=== PATIENT | female | born 1950 | race Caucasian/White ===

== ENCOUNTER 2021-05-29 13:29 | Inpatient (IN) | payer MEDICARE, SELFPAY ==
[2021-05-29] VITALS (7 sets, daily range): BP systolic 112–145; BP diastolic 49–62; PULSE 58–64; RESP 15–20; TEMP 36.9–37.2; O2SAT 96–99; BMI 32.4
--- NOTE | ~2021-05-29 | XR_ITS ---
EXAMINATION: XR CHEST CLINICAL INFORMATION: Weakness. Mr. dialysis. COMPARISON: None TECHNIQUE: 2 views of the chest were obtained. FINDINGS: There is bilateral increased pulmonary vascularity suggestive of volume overload or CHF. The heart size is borderline normal. The lungs are expanded without acute pneumonic consolidation. No pleural effusion seen. There is mild spondylosis. XR/XR chest 2V IMPRESSION: Mild CHF or volume overload. No acute consolidation seen.
--- NOTE | 2021-05-29 13:35 | ED.GENADULT ---
HPI - General Adult General Chief complaint: Weakness Stated complaint: weakness/confusion - missed dialysis Time Seen by Provider: 05/29/21 13:35 Source: patient and EMS Mode of arrival: EMS Limitations: no limitations History of Present Illness HPI narrative: 71-year-old female with past medical history of CKD AF, asthma, GERD, factor 5 leiden on Coumadin therapy daily, herniated discs, dialysis for the last 6 years is here today for complaining of weakness and dizziness. Patient reports that her dialysis is on Tuesday and Fridays at 10:00 a.m.. Patient reports that this morning she slept in and woke up at 10:00 a.m. and miss her dialysis. When she got up and was walking to the bathroom she felt her legs were given in under her, she denies falling, however she does report that she felt a little weak. Patient reports that she ate and drank normally yesterday does not feel like she is dehydrated. Patient denies having diabetes as a history. Unknown cause of kidney failure. Patient reports that she takes Coumadin every day and has not missed any doses. Patient reports that she does take all her medications as ordered. Patient denies CP, palpitations, syncope, presyncope, SOB with or without exertion. Patient does reports that she occasionally is short of breath history of asthma, long history of smoking and patient continues to smoke Related Data Home Medications Medication Instructions Recorded Confirmed ciprofloxacin HCl 250 mg tablet 1 tab PO DAILY 05/29/21 05/29/21 docusate sodium 100 mg capsule 100 mg PO BID 05/29/21 05/29/21 (Colace) doxepin 50 mg capsule 3 cap PO BEDTIME 05/29/21 05/29/21 ergocalciferol (vitamin D2) 1,250 1 cap PO TORRES@0900 05/29/21 05/29/21 mcg (50,000 unit) capsule fluticasone 250 mcg-salmeterol 50 1 puff PO BID 05/29/21 05/29/21 mcg/dose blistr powdr for inhalation (Antoinette Inhrm) furosemide 80 mg tablet 1 tab PO SUTUTHSA@0900 05/29/21 05/29/21 lidocaine-prilocaine 2.5 %-2.5 % 1 appl TOPICAL MOWEFR 05/29/21 05/29/21 topical cream metoprolol succinate 50 mg 1 tab PO DAILY 05/29/21 05/29/21 tablet,extended release 24 hr oxycodone 10 mg tablet 1 tab PO Q3H PRN 05/29/21 05/29/21 oxycodone myristate 36 mg capsule 1 cap PO QID 05/29/21 05/29/21 sprinkle extended release 12hr(DON'T CRUSH) (Xtampza ER) pantoprazole 40 mg tablet,delayed 1 tab PO BID 05/29/21 05/29/21 release pravastatin 40 mg tablet 1 tab PO BEDTIME 05/29/21 05/29/21 prednisone 5 mg tablet 1 tab PO MOWEFR 05/29/21 05/29/21 prochlorperazine maleate 10 mg 1 tab PO Q8H PRN 05/29/21 05/29/21 tablet sevelamer carbonate 800 mg tablet 800 mg PO TID 05/29/21 05/29/21 (Renvela) topiramate 25 mg tablet 2 tab PO BID 05/29/21 05/29/21 warfarin 1 mg tablet 1 tab PO SUMOWETHFR05/29/21 05/29/21 warfarin 2 mg tablet 1 tab PO TU 05/29/21 05/29/21 Allergies Allergy/AdvReac Type Severity Reaction Status Date / Time Penicillins Allergy Facial rash Verified 05/29/21 14:05 clopidogrel [From Plavix] AdvReac Vertigo Verified 05/29/21 14:05 Review of Systems Review of Systems: Constitutional : No Weight loss, No Fever, No Chills, No Night Sweats, No Fatigue, No Malaise ENT/Mouth : No Hearing loss, No Ear Pain, No Nasal Congestion, No Sinus Pain, No Hoarseness, No sore throat, No Rhinorrhea, No Swallowing Difficulty Eyes: No Eye Pain, No Swelling, No Redness, No Foreign Body, No Discharge, No Vision Changes Cardiovascular : No Chest Pain, No SOB, No Dyspnea on Exertion, No Orthopnea, No Edema, No Palpitations Respiratory : No Cough, No Sputum, No Wheezing, No Smoke Exposure, No Dyspnea Gastrointestinal : No Nausea, No Vomiting, No Diarrhea, No Constipation, No abdominal Pain, No Hematochezia, No Melena Genitourinary : no irregular bleeding, No Dysuria, No Urinary Frequency, No Hematuria, No Urinary Incontinence, No Urgency, No Flank Pain, No Urinary Flow Changes, No Hesitancy Musculoskeletal : No joint pain, No Myalgias, No Joint Swelling Skin : No Skin Lesions, No rash Neuro : Generalized Weakness, No Numbness, No Paresthesias, No Loss of Consciousness, No Dizziness, No Headache Psych : No Anxiety/Panic, No Depression, No SI/HI/AH/VH, No Social Issues, Heme/Lymph: No Bruising, No Bleeding,No Lymphadenopathy Endocrine : No Polyuria, No Polydipsia, No Temperature Intolerance Yes all other systems are reviewed and are negative [facility] Past Medical History Medical History (Updated 05/29/21 @ 21:48 by Elsie Coles, [facility]) Factor 5 Leiden mutation, heterozygous High cholesterol Kidney disease Social History Social History Advance Directives: No Advance Directives Information Provided: No Physical Exam Vital Signs: Vital Signs: Last Vital Signs Temp 99.0 F 05/29/21 19:15 Pulse 63 05/29/21 20:31 Resp 20 05/29/21 19:15 BP 145/62 H 05/29/21 19:15 Pulse Ox 96 05/29/21 17:59 Body Mass Index 32.4 Const: General: cooperative, no acute distress, well developed, alert and awake; No acute distress Nutritional Appearance: well nourished Orientation/consciousness: patient oriented x3 HENMT: Head: Yes normal to inspection, Yes normocephalic and Yes atraumatic Ears: hearing grossly normal bilaterally, external ears normal and TM's normal bilaterally Face and sinus: Yes normal facial exam Mouth: Normal oral and palatal mucosa present Throat: Yes posterior oropharynx normal, Yes tonsils normal and Yes uvula midline Eyes: General: appearance normal, both eyes and all related structures Neck: Neck: Yes normal visual inspection, Yes full ROM and Yes trachea midline Thyroid: Thyroid normal Resp: Effort & Inspection: normal respiratory effort, able to speak in complete sentences, no tracheal deviation and symmetric chest movement Auscultation: clear to auscultation bilaterally Cardio: Jugular venous distension: no JVD Rate: regular rate Rhythm: regular rhythm Heart sounds: S1 normal heart sound present, S2 normal heart sound present, no gallops and Murmur heart sound present (Systolic murmur) GI: Inspection: Yes normal to inspection and No distended Palpation (GI): Soft to palpation, not firm, nontender and No hepatosplenomegaly present Auscultation: normal bowel sounds : General: Yes no CVA tenderness Back/Spine/Pelvis: Back: no CVA tenderness Skin: General skin exam: elasticity normal, turgor normal and dry skin Neuro: General: patient oriented x3 Psych: Appearance: grossly normal Mental Status: mental status grossly normal Speech and movement: Normal speech and movement present Affect: normal affect Attitude: cooperative Thought process: Normal thought process present Thought content: Normal thought content present Insight: Good insight present (Psych) Judgement: Good judgement present (Psych) NIH Stroke Scale Level of Consciousness: Alert Level of Consciousness Questions: Answers both questions correctly Level of Consciousness Commands: Performs both tasks correctly Best Gaze: Normal Visual: No visual loss Facial Palsy: Normal Motor Arm (Right): No drift Motor Arm (Left): No drift Motor Leg (Right): No drift Motor Leg (Left): No drift Limb Ataxia: Absent Sensory: Normal Best Language: No aphasia Dysarthia: Normal Extinction and Inattention: No abnormality Score: 0 Course Course Course Narrative: 71-year-old female with past medical history of CKD AF, asthma, GERD, factor 5 leiden, hemodialysis on Tuesday and Tuesday. Patient reports that she overslept and when she woke up was 10:00 a.m. and her dialysis usually is a 10 in the morning. Patient reports that she felt weak and dizzy. When she got up to go to the bathroom she felt that her legs felt little wobbly, in she felt little weak. Patient denies any chest pain, palpitations, SOB, presyncope or syncope. Patient denies any nausea or vomiting. Denies any abdominal pain, discomfort cramping. Denies any diarrhea or constipation. Patient reports that she had similar symptoms in the past, however she does report that that happened long time ago. Patient denies any vertigo, denies any headache, blurred vision, sensitivity to light. We will order labs, CBC, BMP, EKG, troponin, PT and INR, chest x-ray Reevaluation(s) Reevaluation #1: EKG shows prolonged QTs and peaked T-waves, labs pending will give patient insulin, dextrose, calcium gluconate, sodium bicarb, Lokelma, awaiting results. Patient usually goes [facility] there is no records here. Reevaluation #2: EKG repeated no change, potassium repeated and 5.9. Troponin 25.6, call out to Dr. Alvarez who is chief console operator for nephrology. We will admit to hospitalist services with Nephrology consult. Patient will go for dialysis tomorrow . Patient reports that she is feeling otherwise well, denies any SOB, chest pain, presyncope or syncope. Orthostatics were done when patient arrived and they were all negative. we will give her another dose of Lokelma and we will recheck her potassium level at 9:00 p.m. and we will repeat EKG then. Will call hospitalist for admission Medical Decision Making Lab Data Result diagrams: 05/29/21 14:41 05/29/21 17:58 Labs: Lab Results 05/29/21 05/29/21 05/29/21 Range/Units 14:27 14:41 14:41 WBC (4.8-10.8) X10*3/uL RBC (4.20-5.50) X10*6/uL Hgb (12.0-16.0) g/dl Hct (37.0-47.0) % MCV (80.0-98.0) fL MCH (27.0-33.0) pg MCHC (31.0-35.0) g/dl RDW (11.0-16.0) % Plt Count (160-400) X10*3/uL MPV (9.4-12.3) fL Immature Gran % (Auto) (0.0-0.4) % Neut % (Auto) (45-73) % Lymph % (Auto) (20-40) % [place] % (Auto) (2-11) % Eos % (Auto) (0-4) % Baso % (Auto) (0-2) % Lymph # (Auto) (1.2-4.9) X10*3/uL [place] # (Auto) (0.1-1.2) X10*3/uL Eos # (Auto) (0.0-0.4) X10*3/uL Baso # (Auto) (0.0-0.2) X10*3/uL Abs Immat Gran (auto) (0.00-0.03) X10*3/uL Absolute Neuts (auto) (2.0-8.3) x10*3/uL Absolute Nucleated RBC (0.0-0.012) X10*3/uL Nucleated RBC % (auto) (0.0-0.2) /100WBC PT (9.9-13.0) SEC INR (0.9-1.1) Sodium 135 (135-145) mmol/L Potassium 6.4 H* (3.3-5.1) mmol/L Chloride 95 L (96-108) mmol/L Carbon Dioxide 27 (22-29) mmol/L Anion Gap 19 (12-20) BUN 48 H (9-16) mg/dL Creatinine 6.64 H* (0.5-1.4) mg/dL Estim Creat Clear Calc 9.1 Estimated GFR 6 Random Glucose 104 (60-115) mg/dL Calcium 8.2 L (8.4-10.2) mg/dL Troponin I High Sens 23.8 H* (<3.5-17.0) ng/L COVID-19 (JIMMY) Negative (Negative) COVID-19 Clin Com See Note 05/29/21 05/29/21 05/29/21 Range/Units 14:41 14:41 17:58 WBC 6.2 (4.8-10.8) X10*3/uL RBC 2.96 L (4.20-5.50) X10*6/uL Hgb 9.8 L (12.0-16.0) g/dl Hct 29.3 L (37.0-47.0) % MCV 99.0 H (80.0-98.0) fL MCH 33.1 H (27.0-33.0) pg MCHC 33.4 (31.0-35.0) g/dl RDW 15.3 (11.0-16.0) % Plt Count 71 L (160-400) X10*3/uL MPV 10.9 (9.4-12.3) fL Immature Gran % (Auto) 0.5 H (0.0-0.4) % Neut % (Auto) 72.6 (45-73) % Lymph % (Auto) 12.9 L (20-40) % [place] % (Auto) 9.3 (2-11) % Eos % (Auto) 3.9 (0-4) % Baso % (Auto) 0.8 (0-2) % Lymph # (Auto) 0.8 L (1.2-4.9) X10*3/uL [place] # (Auto) 0.6 (0.1-1.2) X10*3/uL Eos # (Auto) 0.2 (0.0-0.4) X10*3/uL Baso # (Auto) 0.1 (0.0-0.2) X10*3/uL Abs Immat Gran (auto) 0.03 (0.00-0.03) X10*3/uL Absolute Neuts (auto) 4.5 (2.0-8.3) x10*3/uL Absolute Nucleated RBC 0.000 (0.0-0.012) X10*3/uL Nucleated RBC % (auto) 0.0 (0.0-0.2) /100WBC PT 26.8 H (9.9-13.0) SEC INR 2.3 H (0.9-1.1) Sodium (135-145) mmol/L Potassium 5.9 H (3.3-5.1) mmol/L Chloride (96-108) mmol/L Carbon Dioxide (22-29) mmol/L Anion Gap (12-20) BUN (9-16) mg/dL Creatinine (0.5-1.4) mg/dL Estim Creat Clear Calc Estimated GFR Random Glucose (60-115) mg/dL Calcium (8.4-10.2) mg/dL Troponin I High Sens (<3.5-17.0) ng/L COVID-19 (JIMMY) (Negative) COVID-19 Clin Com 05/29/21 Range/Units 17:58 WBC (4.8-10.8) X10*3/uL RBC (4.20-5.50) X10*6/uL Hgb (12.0-16.0) g/dl Hct (37.0-47.0) % MCV (80.0-98.0) fL MCH (27.0-33.0) pg MCHC (31.0-35.0) g/dl RDW (11.0-16.0) % Plt Count (160-400) X10*3/uL MPV (9.4-12.3) fL Immature Gran % (Auto) (0.0-0.4) % Neut % (Auto) (45-73) % Lymph % (Auto) (20-40) % [place] % (Auto) (2-11) % Eos % (Auto) (0-4) % Baso % (Auto) (0-2) % Lymph # (Auto) (1.2-4.9) X10*3/uL [place] # (Auto) (0.1-1.2) X10*3/uL Eos # (Auto) (0.0-0.4) X10*3/uL Baso # (Auto) (0.0-0.2) X10*3/uL Abs Immat Gran (auto) (0.00-0.03) X10*3/uL Absolute Neuts (auto) (2.0-8.3) x10*3/uL Absolute Nucleated RBC (0.0-0.012) X10*3/uL Nucleated RBC % (auto) (0.0-0.2) /100WBC PT (9.9-13.0) SEC INR (0.9-1.1) Sodium (135-145) mmol/L Potassium (3.3-5.1) mmol/L Chloride (96-108) mmol/L Carbon Dioxide (22-29) mmol/L Anion Gap (12-20) BUN (9-16) mg/dL Creatinine (0.5-1.4) mg/dL Estim Creat Clear Calc Estimated GFR Random Glucose (60-115) mg/dL Calcium (8.4-10.2) mg/dL Troponin I High Sens 25.6 H* (<3.5-17.0) ng/L COVID-19 (JIMMY) (Negative) COVID-19 Clin Com Imaging Data Chest x-ray: Attestation: I personally reviewed and interpreted this imaging study as follows: Radiologist's impression: FINDINGS: There is bilateral increased pulmonary vascularity suggestive of volume overload or CHF. The heart size is borderline normal. The lungs are expanded without acute pneumonic consolidation. No pleural effusion seen. There is mild spondylosis. Discharge Plan Discharge Clinical Impression: Hyperkalemia, ESRD (end stage renal disease) Patient Disposition: Admitted As Inpatient
--- NOTE | 2021-05-29 14:00 | PC.NURSE ---
pt states she goes to dialysis every Tuesday, Tuesday and Tuesday at 10 a.m. She reports that this morning she overslept and missed her dialysis. She reports that when she got up to use the restroom her legs felt like they were giving out on her. she felt weaker than usual, she also states she was confused. she denies falling. pt states she does not think she is dehydrated because she ate and drank normally yesterday. Pt is on Coumadin and is compliant with taking her meds. she denies chest pain. she does report some sob with exertion. no other complaints reported.
--- NOTE | 2021-05-29 14:05 | ECG_ITS ---
Test Reason : DIZZINESS,WEAKNESS Blood Pressure : / mmHG Vent. Rate : 115 BPM Atrial Rate : 115 BPM P-R Int : 180 ms QRS Dur : 092 ms QT Int : 464 ms P-R-T Axes : 024 002 047 degrees QTc Int : 641 ms Normal sinus rhythm peaked T waves Prolonged QT Abnormal ECG No previous ECGs available Referred By: Elsie Coles Electronically Signed By:KIA ROYAL MD
[2021-05-29 14:45] LABS: MANUAL DIFF FLAG NO
[2021-05-29] MEDS: Sodium Zirconium Cyclosilicate 5 GM POWD.PACK PO (14:49)
[2021-05-29 14:50] LABS: Basophils Absolute Auto 0.1 X10*3/uL (0.0-0.2); Basophils Percent Auto 0.8 % (0-2); Eosinophils Absolute Auto 0.2 X10*3/uL (0.0-0.4); Eosinophils Percent Auto 3.9 % (0-4); Hematocrit 29.3 % (37.0-47.0); Hemoglobin 9.8 g/dl (12.0-16.0); Imm Gran Abs Auto 0.03 X10*3/uL (0.00-0.03); Imm Gran Pct Auto 0.5 % (0.0-0.4); Lymphocytes Absolute Auto 0.8 X10*3/uL (1.2-4.9); Lymphocytes Percent Auto 12.9 % (20-40); Mean Corpuscular HGB Conc 33.4 g/dl (31.0-35.0); Mean Corpuscular Hemoglobin 33.1 pg (27.0-33.0); Mean Platelet Volume 10.9 fL (9.4-12.3); Monocytes Absolute Auto 0.6 X10*3/uL (0.1-1.2); Monocytes Percent Auto 9.3 % (2-11); Neutrophils Absolute Auto 4.5 x10*3/uL (2.0-8.3); Neutrophils Percent Auto 72.6 % (45-73); Red Blood Count 2.96 X10*6/uL (4.20-5.50); Red Cell Distribution Width 15.3 % (11.0-16.0); White Blood Count 6.2 X10*3/uL (4.8-10.8)
[2021-05-29] MEDS: Insulin Regular, Human 100 UNIT/ML 3 ML VIAL IVPUSH (14:50)
[2021-05-29] MEDS: Sodium Bicarbonate 8.4% 50 MEQ/50 ML SYRINGE IVPUSH (14:50)
[2021-05-29 14:51] LABS: Platelet Count 71 X10*3/uL (160-400)
[2021-05-29 14:55] LABS: COVID-19 Test Negative (Negative); IDNOW Serial# 9DD0AD1C
[2021-05-29 14:55] LABS: INTERNATIONAL NORM RATIO 2.3 (0.9-1.1); Prothrombin Time 26.8 SEC (9.9-13.0)
[2021-05-29] MEDS: Calcium Gluconate/NaCl,Iso-Osm 2 GM/100 ML PLAST..BAG IV (15:00)
[2021-05-29 15:25] LABS: Anion Gap 19 (12-20); Blood Urea Nitrogen 48 mg/dL (9-16); Calcium 8.2 mg/dL (8.4-10.2); Carbon Dioxide 27 mmol/L (22-29); Chloride 95 mmol/L (96-108); Creatinine Clr Calc Pharmacy 9.1; Estimated Glomerular Filt Rate 6; Glucose Random 104 mg/dL (60-115); Potassium 6.4 mmol/L (3.3-5.1); Sodium 135 mmol/L (135-145)
[2021-05-29 15:26] LABS: Troponin-I High Sensitivity 23.8 ng/L (<3.5-17.0)
--- NOTE | 2021-05-29 16:44 | ECG_ITS ---
Test Reason : repeat Blood Pressure : / mmHG Vent. Rate : 064 BPM Atrial Rate : 064 BPM P-R Int : 158 ms QRS Dur : 092 ms QT Int : 446 ms P-R-T Axes : 033 004 048 degrees QTc Int : 460 ms Normal sinus rhythm RSR' or QR pattern in V1 suggests right ventricular conduction delay Nonspecific ST abnormality Borderline ECG T wave amplitude has decreased in Anterior leads Referred By: Elsie Coles Electronically Signed By:KIA ROYAL MD
--- NOTE | 2021-05-29 17:48 | PC.NURSE ---
PATIENT REFUSED TO COMPLETELY CHANGE INTO HOSPITAL ATTIRE ,RN AWARE
[2021-05-29 18:14] LABS: Potassium 5.9 mmol/L (3.3-5.1)
[2021-05-29 18:34] LABS: Troponin-I High Sensitivity 25.6 ng/L (<3.5-17.0)
[2021-05-29] MEDS: Sodium Zirconium Cyclosilicate 10 GM POWD.PACK PO (19:45)
--- NOTE | 2021-05-29 20:09 | P.HPHOSP_ITS ---
History of Present Illness Date of Service: 05/29/21 Chief Complaint: Generalized weakness 71-year-old female with a past medical history of ESRD on hemodialysis, asthma, GERD, history of herniated disc, factor 5 laden deficiency on Coumadin presented to the hospital today with a chief complaint of generalized weakness. Patient reported that she missed her hemodialysis today. Mentioned that she overslept today and could make it to the dialysis session. When she would try to go to the bathroom she also felt unsteady; denies any fall or loss of consciousness. Denies any chest pain or palpitations. Denies any urinary symptoms. None reported she occasionally makes little urine. Denies any nausea vomiting diarrhea. Review of all other systems is negative except mentioned above ER course: Per ER team patient exam was essentially benign; labs noted to have hyperkalemia with a potassium of 6.4 an EKG showed peaked T-waves; patient was given calcium gluconate, insulin, dextrose, Lokelma; discussed with Nephrology who recommended admission to the medicine service and to be sent for dialysis in the morning. Patient chest x-ray showed mild CHF-no evidence of respiratory distress, breathing comfortably. Patient troponins are indeterminate-attributed to reduced clearance; EKG was nonischemic and patient denied any chest pains. Follow-up troponins plate due to. REPLACED BY [facility] Medical History (Updated 05/29/21 @ 21:48 by Elsie Coles [facility]) Factor 5 Leiden mutation, heterozygous High cholesterol Kidney disease Pertinent family history: Reviewed Social History Advance Directives: No Advance Directives Information Provided: No service: No Current occupational status: retired Meds Allergies Allergy/AdvReac Type Severity Reaction Status Date / Time Penicillins Allergy Facial rash Verified 05/29/21 14:05 clopidogrel [From Plavix] AdvReac Vertigo Verified 05/29/21 14:05 Active Medications: Current Medications Acetaminophen (Acetaminophen 325 Mg Tablet) 650 mg PO Q6H PRN PRN Reason: Pain, Mild (Pain Scale 1-3) Melatonin (Melatonin 3 Mg Tablet) 6 mg PO BEDTIME PRN PRN Reason: Insomnia Senna (Sennosides 8.6 Mg Tablet) 17.2 mg PO BEDTIME PRN PRN Reason: Constipation Sodium Chloride (0.9 % Sodium Chloride Flush 3 Ml Syringe) 3 ml IVFLUSH [facility] Home Medications Medication Instructions Recorded Confirmed Last Taken Type ciprofloxacin HCl 250 mg tablet 1 tab PO DAILY 05/29/21 05/29/21 05/29/21 History docusate sodium 100 mg capsule 100 mg PO BID 05/29/21 05/29/21 05/29/21 History (Colace) doxepin 50 mg capsule 3 cap PO BEDTIME 05/29/21 05/29/21 05/28/21 History ergocalciferol (vitamin D2) 1,250 1 cap PO TORRES@0900 05/29/21 05/29/21 05/24/21 History mcg (50,000 unit) capsule fluticasone 250 mcg-salmeterol 50 1 puff PO BID 05/29/21 05/29/21 05/29/21 History mcg/dose blistr powdr for inhalation (Antoinette Figueroa) furosemide 80 mg tablet 1 tab PO SUTUTHSA@0900 05/29/21 05/29/21 05/28/21 History lidocaine-prilocaine 2.5 %-2.5 % 1 appl TOPICAL MOWEFR 05/29/21 05/29/21 05/27/21 History topical cream metoprolol succinate 50 mg 1 tab PO DAILY 05/29/21 05/29/21 05/29/21 History tablet,extended release 24 hr oxycodone 10 mg tablet 1 tab PO Q3H PRN 05/29/21 05/29/21 05/29/21 History oxycodone myristate 36 mg capsule 1 cap PO QID 05/29/21 05/29/21 05/29/21 History sprinkle extended release 12hr(DON'T CRUSH) (Xtampza ER) pantoprazole 40 mg tablet,delayed 1 tab PO BID 05/29/21 05/29/21 05/29/21 History release pravastatin 40 mg tablet 1 tab PO BEDTIME 05/29/21 05/29/21 05/29/21 History prednisone 5 mg tablet 1 tab PO MOWEFR 05/29/21 05/29/21 05/27/21 History prochlorperazine maleate 10 mg 1 tab PO Q8H PRN 05/29/21 05/29/21 Unknown History tablet sevelamer carbonate 800 mg tablet 800 mg PO TID 05/29/21 05/29/21 05/29/21 History (Renvela) topiramate 25 mg tablet 2 tab PO BID 05/29/21 05/29/21 05/29/21 History warfarin 1 mg tablet 1 tab PO SUMOWETHFRSA 05/29/21 05/29/21 05/29/21 History warfarin 2 mg tablet 1 tab PO TU 05/29/21 05/29/21 05/26/21 History Physical Exam Vital Signs and Narrative: Vital Signs: Last Vital Signs Temp 99.0 F 05/29/21 19:15 Pulse 64 05/29/21 19:15 Resp 20 05/29/21 19:15 BP 145/62 H 05/29/21 19:15 Pulse Ox 96 05/29/21 17:59 Body Mass Index 32.4 Gen: Appears be in no acute distress. Speaks in full sentences. HEENT: NCAT, Moist mucosa. Pulmonary: Crackles at bases CVS: Normal S1-S2 Abdomen: BS+, Soft, Nontender Extremities: Warm well perfused Neuro: Alert and awake. Results Labs CBC and Chem 7: 05/29/21 14:41 05/29/21 21:20 Labs: Laboratory Results - last 24 hr 05/29/21 05/29/21 05/29/21 14:27 14:41 14:41 MCV MCH MCHC RDW Plt Count MPV Immature Gran % (Auto) Neut % (Auto) Lymph % (Auto) [place] % (Auto) Eos % (Auto) Baso % (Auto) Lymph # (Auto) [place] # (Auto) Eos # (Auto) Baso # (Auto) Abs Immat Gran (auto) Absolute Neuts (auto) Absolute Nucleated RBC Nucleated RBC % (auto) PT INR Anion Gap 19 Estim Creat Clear Calc 9.1 Estimated GFR 6 Random Glucose 104 Calcium 8.2 L Troponin I High Sens 23.8 H* COVID-19 (JIMMY) Negative COVID-19 Clin Com See Note 05/29/21 05/29/21 05/29/21 14:41 14:41 17:58 MCV 99.0 H MCH 33.1 H MCHC 33.4 RDW 15.3 Plt Count 71 L MPV 10.9 Immature Gran % (Auto) 0.5 H Neut % (Auto) 72.6 Lymph % (Auto) 12.9 L [place] % (Auto) 9.3 Eos % (Auto) 3.9 Baso % (Auto) 0.8 Lymph # (Auto) 0.8 L [place] # (Auto) 0.6 Eos # (Auto) 0.2 Baso # (Auto) 0.1 Abs Immat Gran (auto) 0.03 Absolute Neuts (auto) 4.5 Absolute Nucleated RBC 0.000 Nucleated RBC % (auto) 0.0 PT 26.8 H INR 2.3 H Anion Gap Estim Creat Clear Calc Estimated GFR Random Glucose Calcium Troponin I High Sens 25.6 H* COVID-19 (JIMMY) COVID-19 Clin Com Imaging Radiologist's Impressions: Impressions Chest X-Ray 05/29/21 14:06 IMPRESSION: Mild CHF or volume overload. No acute consolidation seen. Assessment and Plan (1) Hyperkalemia: Status: Acute (2) ESRD (end stage renal disease): Status: Acute 71-year-old female with a past medical history of ESRD on hemodialysis, a sthma, GERD, history of herniated disc, factor 5 laden deficiency on Coumadin presented to the hospital today with a chief complaint of generalized weakness. Patient missed hemodialysis session. On labs noted to have hyperkalemia and of mild fluid overload on chest x-ray. Admitted for further management. Hyperkalemia: In the setting of missed hemodialysis. EKG showed peaked T-waves. Received calcium gluconate, insulin IV Push, dextrose, Lokelma. Follow-up potassium improved from 6.4-5.9. Patient receiving more Lokelma. Repeat BMP. Nephrology of air and recommended hemodialysis in the morning. ESRD: Patient missed hemodialysis today. Scheduled for hemodialysis tomorrow morning. Fistula has good thrill. Continue home medications. History of factor 5 laden deficiency: Patient on Coumadin. INR therapeutic. Continue home Coumadin. For all other chronic conditions, home medications will be continued pt is on chronic prednisone for Renal. On chronicCiprofloxacin - for rec UTI prophylaxis. DVT prophylaxis: Patient on Coumadin Code status: Full code Quality Stroke Does the patient have a stroke diagnosis?: No VTE Prior VTE?: No VTE Risk Level:: Medical - moderate - high VTE Device Contraindication: N/A - Device Ordered VTE Drug Contraindication: Treatment Not Indicated
[2021-05-29] MEDS: Albuterol Sulfate (0.083%) 2.5 MG/3 ML VIAL.NEB INHALE (20:27)
--- NOTE | 2021-05-29 21:18 | PHA.MEDREC ---
Pharmacy Consult ? Medication Reconciliation Pharmacy has completed the medication reconciliation. Pt states the she still takes renvela, unable to confirm recent fill history with pharmacy
[2021-05-29 22:19] LABS: Anion Gap 22 (12-20); Blood Urea Nitrogen 49 mg/dL (9-16); Calcium 8.1 mg/dL (8.4-10.2); Carbon Dioxide 24 mmol/L (22-29); Chloride 97 mmol/L (96-108); Creatinine Clr Calc Pharmacy 8.8; Estimated Glomerular Filt Rate 6; Glucose Random 125 mg/dL (60-115); Potassium 5.5 mmol/L (3.3-5.1); Sodium 137 mmol/L (135-145)
--- NOTE | 2021-05-29 23:21 | MHC.CM.PN ---
CM met with admitted patient pending bed assignment. A&Ox3. IMM reviewed and signed per protocol 05/29/2021@2205. 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 No HCP on file. Reviewed, completed and signed. Copies given and uploaded into [email or web address] and [facility] [employer]. HCP/son Brad Thompson ([phone]) and alternate HCP/friend Rubia Mijares ([phone]). PCP id Dr. Pantera Ceja in [place], [place]. Pt is fully vaccinated with Moderna and had booster shot. ESKD on Dialysis at [facility] in [facility] on Tuesday, Tuesday, and Tuesday. Pt overslept and missed dialysis today. Will have dialysis tomorrow. Pt uses no DME or other services. D/C plan is home without services. To continue with scheduled dialysis. Pt to arrange transportation home.
[2021-05-30 00:57] VITALS: BP 124/54; PULSE 60; RESP 16; TEMP 37.2; O2SAT 96
[2021-05-30 03:20] VITALS: BP 136/61; PULSE 60; RESP 14; O2SAT 98
[2021-05-30 05:01] VITALS: RESP 16
[2021-05-30] MEDS: HYDROmorphone HCl 0.5 MG/0.5 ML SYRINGE IVPUSH (05:01)
[2021-05-30 05:10] VITALS: BP 145/65; PULSE 60; RESP 14; O2SAT 95
[2021-05-30 06:07] LABS: MANUAL DIFF FLAG NO
[2021-05-30 06:12] LABS: Basophils Absolute Auto 0.1 X10*3/uL (0.0-0.2); Basophils Percent Auto 1.1 % (0-2); Eosinophils Absolute Auto 0.2 X10*3/uL (0.0-0.4); Eosinophils Percent Auto 4.1 % (0-4); Hematocrit 29.6 % (37.0-47.0); Hemoglobin 9.6 g/dl (12.0-16.0); Imm Gran Abs Auto 0.02 X10*3/uL (0.00-0.03); Imm Gran Pct Auto 0.4 % (0.0-0.4); Lymphocytes Absolute Auto 1.3 X10*3/uL (1.2-4.9); Lymphocytes Percent Auto 23.4 % (20-40); Mean Corpuscular HGB Conc 32.4 g/dl (31.0-35.0); Mean Corpuscular Hemoglobin 32.2 pg (27.0-33.0); Mean Corpuscular Volume 99.3 fL (80.0-98.0); Mean Platelet Volume 10.6 fL (9.4-12.3); Monocytes Absolute Auto 0.6 X10*3/uL (0.1-1.2); Monocytes Percent Auto 10.7 % (2-11); Neutrophils Absolute Auto 3.4 x10*3/uL (2.0-8.3); Neutrophils Percent Auto 60.3 % (45-73); Red Blood Count 2.98 X10*6/uL (4.20-5.50); Red Cell Distribution Width 15.4 % (11.0-16.0); White Blood Count 5.6 X10*3/uL (4.8-10.8)
[2021-05-30 06:22] LABS: INTERNATIONAL NORM RATIO 2.2 (0.9-1.1); Platelet Count 61 X10*3/uL (160-400); Prothrombin Time 25.3 SEC (9.9-13.0)
[2021-05-30 06:31] LABS: Anion Gap 19 (12-20); Blood Urea Nitrogen 50 mg/dL (9-16); Calcium 8.1 mg/dL (8.4-10.2); Carbon Dioxide 26 mmol/L (22-29); Chloride 96 mmol/L (96-108); Creatinine Clr Calc Pharmacy 8.6; Estimated Glomerular Filt Rate 6; Glucose Random 91 mg/dL (60-115); Potassium 5.3 mmol/L (3.3-5.1); Sodium 136 mmol/L (135-145)
[2021-05-30 07:27] VITALS: BP 132/64; PULSE 60
[2021-05-30] MEDS: Furosemide 40 MG TABLET 80 MG PO (07:27)
[2021-05-30] MEDS: Metoprolol Succinate ER 50 MG TAB.ER.24H PO (07:27)
[2021-05-30] MEDS: Sevelamer Carbonate Tablet 800 MG TABLET PO (07:27)
[2021-05-30] MEDS: Docusate Sodium 100 MG CAPSULE PO (07:27)
[2021-05-30] MEDS: levoFLOXacin 250 MG TABLET PO (07:27)
[2021-05-30] MEDS: Topiramate 25 MG TABLET 50 MG PO (07:28)
[2021-05-30] MEDS: Omeprazole 20 MG CAPSULE.DR PO (07:28)
--- NOTE | 2021-05-30 09:02 | PC.NURSE ---
pt up to dialysis at this time
--- NOTE | 2021-05-30 11:10 | P.PNNP_ITS ---
Subjective Subjective Date of Service: 05/30/21 Interval history: Pt seen on HD Fee;s better K is better Physical Exam Vital Signs: Vital Signs: Last Vital Signs Temp 99.0 F 05/30/21 00:57 Pulse 60 05/30/21 07:27 Resp 14 05/30/21 05:10 BP 132/64 05/30/21 07:27 Pulse Ox 95 05/30/21 05:10 Body Mass Index 32.4 Const General:?cooperative, no acute distress, well developed, alert and awake; No acute distress Nutritional Appearance:?well nourished Orientation/consciousness:?patient oriented x3 [facility] Head:?Yes normal to inspection, Yes normocephalic and Yes atraumatic Ears:?hearing grossly normal bilaterally, external ears normal and TM's normal bilaterally Face and sinus:?Yes normal facial exam Mouth:?Normal oral and palatal mucosa present Throat:?Yes posterior oropharynx normal, Yes tonsils normal and Yes uvula midline Eyes General:?appearance normal, both eyes and all related structures Neck Neck:?Yes normal visual inspection, Yes full ROM and Yes trachea midline Thyroid:?Thyroid normal Resp Effort & Inspection:?normal respiratory effort, able to speak in complete sentences, no tracheal deviation and symmetric chest movement Auscultation:?clear to auscultation bilaterally Cardio Jugular venous distension:?no JVD Rate:?regular rate Rhythm:?regular rhythm Heart sounds:?S1 normal heart sound present, S2 normal heart sound present, no gallops and Murmur heart sound present (Systolic murmur) GI Inspection:?Yes normal to inspection and No distended Palpation (GI):?Soft to palpation, not firm, nontender and No hepatosplenomegaly present Auscultation:?normal bowel sounds General:?Yes no CVA tenderness Back/Spine/Pelvis Back:?no CVA tenderness Skin General skin exam:?elasticity normal, turgor normal and dry skin Neuro General:?patient oriented x3 Objective Data Labs CBC & Chem 7: 05/30/21 05:55 05/30/21 05:55 Labs: Laboratory Results - last 24 hr 05/29/21 05/29/21 05/29/21 14:27 14:41 14:41 WBC RBC Hgb Hct MCV MCH MCHC RDW Plt Count MPV Immature Gran % (Auto) Neut % (Auto) Lymph % (Auto) [place] % (Auto) Eos % (Auto) Baso % (Auto) Lymph # (Auto) [place] # (Auto) Eos # (Auto) Baso # (Auto) Abs Immat Gran (auto) Absolute Neuts (auto) Absolute Nucleated RBC Nucleated RBC % (auto) PT INR Sodium 135 Potassium 6.4 H* Chloride 95 L Carbon Dioxide 27 Anion Gap 19 BUN 48 H Creatinine 6.64 H* Estim Creat Clear Calc 9.1 Estimated GFR 6 Random Glucose 104 Calcium 8.2 L Troponin I High Sens 23.8 H* COVID-19 (JIMMY) Negative COVID-19 Clin Com See Note 05/29/21 05/29/21 05/29/21 14:41 14:41 17:58 WBC 6.2 RBC 2.96 L Hgb 9.8 L Hct 29.3 L MCV 99.0 H MCH 33.1 H MCHC 33.4 RDW 15.3 Plt Count 71 L MPV 10.9 Immature Gran % (Auto) 0.5 H Neut % (Auto) 72.6 Lymph % (Auto) 12.9 L [place] % (Auto) 9.3 Eos % (Auto) 3.9 Baso % (Auto) 0.8 Lymph # (Auto) 0.8 L [place] # (Auto) 0.6 Eos # (Auto) 0.2 Baso # (Auto) 0.1 Abs Immat Gran (auto) 0.03 Absolute Neuts (auto) 4.5 Absolute Nucleated RBC 0.000 Nucleated RBC % (auto) 0.0 PT 26.8 H INR 2.3 H Sodium Potassium 5.9 H Chloride Carbon Dioxide Anion Gap BUN Creatinine Estim Creat Clear Calc Estimated GFR Random Glucose Calcium Troponin I High Sens COVID-19 (JIMMY) COVID-19 Clin Com 05/29/21 05/29/21 05/30/21 17:58 21:20 05:55 WBC 5.6 RBC 2.98 L Hgb 9.6 L Hct 29.6 L MCV 99.3 H MCH 32.2 MCHC 32.4 RDW 15.4 Plt Count 61 L MPV 10.6 Immature Gran % (Auto) 0.4 Neut % (Auto) 60.3 Lymph % (Auto) 23.4 [place] % (Auto) 10.7 Eos % (Auto) 4.1 H Baso % (Auto) 1.1 Lymph # (Auto) 1.3 [place] # (Auto) 0.6 Eos # (Auto) 0.2 Baso # (Auto) 0.1 Abs Immat Gran (auto) 0.02 Absolute Neuts (auto) 3.4 Absolute Nucleated RBC 0.000 Nucleated RBC % (auto) 0.0 PT INR Sodium 137 Potassium 5.5 H Chloride 97 Carbon Dioxide 24 Anion Gap 22 H BUN 49 H Creatinine 6.89 H* Estim Creat Clear Calc 8.8 Estimated GFR 6 Random Glucose 125 H Calcium 8.1 L Troponin I High Sens 25.6 H* COVID-19 (JIMMY) COVID-19 ScoreGrid Com 05/30/21 05/30/21 05:55 05:55 WBC RBC Hgb Hct MCV MCH MCHC RDW Plt Count MPV Immature Gran % (Auto) Neut % (Auto) Lymph % (Auto) [place] % (Auto) Eos % (Auto) Baso % (Auto) Lymph # (Auto) [place] # (Auto) Eos # (Auto) Baso # (Auto) Abs Immat Gran (auto) Absolute Neuts (auto) Absolute Nucleated RBC Nucleated RBC % (auto) PT 25.3 H INR 2.2 H Sodium 136 Potassium 5.3 H Chloride 96 Carbon Dioxide 26 Anion Gap 19 BUN 50 H Creatinine 7.04 H* Estim Creat Clear Calc 8.6 Estimated GFR 6 Random Glucose 91 Calcium 8.1 L Troponin I High Sens COVID-19 (JIMMY) COVID-19 Clin Com Procedures Date of Service Date of Service: 05/30/21 Assessment & Plan Assessment and plan (1) ESRD (end stage renal disease): Status: Acute (2) Hyperkalemia: Status: Acute Assessment and Plan: Continue HD K per protocol Fluid removal as tolerated Pt seen on HD Using AVF No Heparin Can be d/c'd after Hd if stable from renal stand point Thx Dr. Alvarez Time Spent With Patient Time: Total time spent is greater than 50% in coordination of care (as documented) at patient's floor/unit and/or counseling patient: Progress Note: Quality Stroke Does the patient have a stroke diagnosis?: No
--- NOTE | 2021-05-30 12:14 | PM.DS ---
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 Patient reported that she missed her hemodialysis today.? Mentioned that she overslept today and could make it to the dialysis session.? When she would try to go to the bathroom she also felt unsteady; denies any fall or loss of consciousness.? Denies any chest pain or palpitations.? Denies any urinary symptoms.? None reported she occasionally makes little urine.? Denies any nausea vomiting diarrhea.? Review of all other systems is negative except mentioned above ER course: Per ER team patient exam was essentially benign; labs noted to have hyperkalemia with a potassium of 6.4 an EKG showed peaked T-waves; patient was given calcium gluconate, insulin, dextrose, Lokelma; discussed with Nephrology who recommended admission to the medicine service and to be sent for dialysis in the morning.? Patient chest x-ray showed mild CHF-no evidence of respiratory distress, breathing comfortably.? Patient troponins are indeterminate-attributed to reduced clearance; EKG was nonischemic and patient denied any chest pains.? Follow-up troponins plate due to. Hospital course: Patient presented to the hospital with weakness and was noted to have Hyperkalemia with ECG changes, apparently has missed dialysis, she had potassium of 6.4 and after medical treatment came down to 5.3 and underwent dialysis. She wishes to go home and to resume outpatient dialysis on Tuesday. Repeat potassium after dialysis is 3.6. Patient wants to go home today and will resume dialysis on Tuesday, she ambulated on her own power and would not want to any additonal services at this time, she drives herself to dialysis and perfomr her own ADLS Time Spent with Patient Time attestation: Total time spent providing and/or coordinating discharge services: Discharge coordination time: Greater than 30 minutes Quality: Stroke Does the patient have a stroke diagnosis?: No Physical Exam Vital Signs: Vital Signs: Last Vital Signs Temp 99.0 F 05/30/21 00:57 Pulse 60 05/30/21 07:27 Resp 14 05/30/21 05:10 BP 132/64 05/30/21 07:27 Pulse Ox 95 05/30/21 05:10 Body Mass Index 32.4 Const: Other: General: AO X 3, no acute distress Resp: CTA bilateral CVS: S1,S2,RRR GI: +BS, NT, no distention Skin: No rash Neuro: motor grossly intact Psych: appropriate affect DS: Data Data Completed and Pending Labs on day of discharge: Laboratory Results - last 24 hr 05/29/21 05/29/21 05/29/21 14:27 14:41 14:41 WBC RBC Hgb Hct MCV MCH MCHC RDW Plt Count MPV Immature Gran % (Auto) Neut % (Auto) Lymph % (Auto) [place] % (Auto) Eos % (Auto) Baso % (Auto) Lymph # (Auto) [place] # (Auto) Eos # (Auto) Baso # (Auto) Abs Immat Gran (auto) Absolute Neuts (auto) Absolute Nucleated RBC Nucleated RBC % (auto) PT INR Sodium 135 Potassium 6.4 H* Chloride 95 L Carbon Dioxide 27 Anion Gap 19 BUN 48 H Creatinine 6.64 H* Estim Creat Clear Calc 9.1 Estimated GFR 6 Random Glucose 104 Calcium 8.2 L Troponin I High Sens 23.8 H* COVID-19 (JIMMY) Negative COVID-19 Clin Com See Note 05/29/21 05/29/21 05/29/21 14:41 14:41 17:58 WBC 6.2 RBC 2.96 L Hgb 9.8 L Hct 29.3 L MCV 99.0 H MCH 33.1 H MCHC 33.4 RDW 15.3 Plt Count 71 L MPV 10.9 Immature Gran % (Auto) 0.5 H Neut % (Auto) 72.6 Lymph % (Auto) 12.9 L [place] % (Auto) 9.3 Eos % (Auto) 3.9 Baso % (Auto) 0.8 Lymph # (Auto) 0.8 L [place] # (Auto) 0.6 Eos # (Auto) 0.2 Baso # (Auto) 0.1 Abs Immat Gran (auto) 0.03 Absolute Neuts (auto) 4.5 Absolute Nucleated RBC 0.000 Nucleated RBC % (auto) 0.0 PT 26.8 H INR 2.3 H Sodium Potassium 5.9 H Chloride Carbon Dioxide Anion Gap BUN Creatinine Estim Creat Clear Calc Estimated GFR Random Glucose Calcium Troponin I High Sens COVID-19 (JIMMY) COVID-19 Clin Com 05/29/21 05/29/21 05/30/21 17:58 21:20 05:55 WBC 5.6 RBC 2.98 L Hgb 9.6 L Hct 29.6 L MCV 99.3 H MCH 32.2 MCHC 32.4 RDW 15.4 Plt Count 61 L MPV 10.6 Immature Gran % (Auto) 0.4 Neut % (Auto) 60.3 Lymph % (Auto) 23.4 [place] % (Auto) 10.7 Eos % (Auto) 4.1 H Baso % (Auto) 1.1 Lymph # (Auto) 1.3 [place] # (Auto) 0.6 Eos # (Auto) 0.2 Baso # (Auto) 0.1 Abs Immat Gran (auto) 0.02 Absolute Neuts (auto) 3.4 Absolute Nucleated RBC 0.000 Nucleated RBC % (auto) 0.0 PT INR Sodium 137 Potassium 5.5 H Chloride 97 Carbon Dioxide 24 Anion Gap 22 H BUN 49 H Creatinine 6.89 H* Estim Creat Clear Calc 8.8 Estimated GFR 6 Random Glucose 125 H Calcium 8.1 L Troponin I High Sens 25.6 H* COVID-19 (JIMMY) COVID-19 Clin Com 05/30/21 05/30/21 05:55 05:55 WBC RBC Hgb Hct MCV MCH MCHC RDW Plt Count MPV Immature Gran % (Auto) Neut % (Auto) Lymph % (Auto) [place] % (Auto) Eos % (Auto) Baso % (Auto) Lymph # (Auto) [place] # (Auto) Eos # (Auto) Baso # (Auto) Abs Immat Gran (auto) Absolute Neuts (auto) Absolute Nucleated RBC Nucleated RBC % (auto) PT 25.3 H INR 2.2 H Sodium 136 Potassium 5.3 H Chloride 96 Carbon Dioxide 26 Anion Gap 19 BUN 50 H Creatinine 7.04 H* Estim Creat Clear Calc 8.6 Estimated GFR 6 Random Glucose 91 Calcium 8.1 L Troponin I High Sens COVID-19 (JIMMY) COVID-19 Clin Com Discharge Plan Discharge Anticipated Discharge Date/Time: 05/30/21 12:05 Patient Disposition: Home, Self-Care Discharge Diagnosis: hyperkalemia, missed dialysis Referrals: Physician,Unknown J [Primary Care Provider] - 1 Week Discharge Medications: Continued doxepin 50 mg capsule 3 cap PO BEDTIME RF: 0 fluticasone propion-salmeterol [Wixela Inhub] 250-50 mcg/dose blister with device 1 puff PO BID RF: 0 pravastatin 40 mg tablet 1 tab PO BEDTIME RF: 0 metoprolol succinate 50 mg tablet extended release 24 hr 1 tab PO DAILY RF: 0 prednisone 5 mg tablet 1 tab PO MOWEFR RF: 0 topiramate 25 mg tablet 2 tab PO BID RF: 0 ciprofloxacin HCl 250 mg tablet 1 tab PO DAILY RF: 0 prochlorperazine maleate 10 mg tablet 1 tab PO Q8H PRN (Reason: nausea) RF: 0 lidocaine-prilocaine 2.5-2.5 % cream 1 appl topical MOWEFR RF: 0 pantoprazole 40 mg tablet,delayed release (DR/EC) 1 tab PO BID RF: 0 warfarin 2 mg tablet 1 tab PO TU RF: 0 docusate sodium [Colace] 100 mg Capsule 100 mg PO BID RF: 0 ergocalciferol (vitamin D2) 1,250 mcg (50,000 unit) capsule 1 cap PO TORRES@0900 RF: 0 warfarin 1 mg tablet 1 tab PO SUMOWETHFRSA RF: 0 sevelamer carbonate [Renvela] 800 mg Tablet 800 mg PO TID RF: 0 oxycodone 10 mg tablet 1 tab PO Q3H PRN (Reason: pain) RF: 0 Xtampza ER 36 mg cap,sprinkl,ER12hr(DONT CRUSH) 1 cap PO QID RF: 0 furosemide 80 mg tablet 1 tab PO SUTUTHSA@0900 RF: 0 Discharge Orders: Discharge Order (Routine); Ordered 05/30/21 Ordered By: Jj Artis Diet: advance to usual diet Activity on Discharge: As tolerated Stand Alone Forms: Patient Portal Discharge page Care Plan Goals: prevent rehospitalization Health Concerns: Hyperkalemia, ESRD Plan of Treatment: Go to dialysis as usual and follow up with your Doctor Assessment: Aas tolerated
[2021-05-30 14:31] LABS: Anion Gap 15 (12-20); Blood Urea Nitrogen 15 mg/dL (9-16); Calcium 8.7 mg/dL (8.4-10.2); Carbon Dioxide 23 mmol/L (22-29); Chloride 100 mmol/L (96-108); Creatinine Clr Calc Pharmacy 21.3; Estimated Glomerular Filt Rate 16; Glucose Random 95 mg/dL (60-115); Potassium 3.6 mmol/L (3.3-5.1); Sodium 134 mmol/L (135-145)
--- NOTE | 2021-05-30 16:31 | MHC.CM.PN ---
Patient plan dc home today, resume HD. Met with patient, she lives alone, is independent at baseline. Attends HD and reports she drives herself. Son lives in [place] and other son is homeless. She called friend for ride home, but friend not able to drive her home. Patient continues to experience some dizziness. Myself, RN and hospitalist evaluated patient get OOB and walk in room, slightly unsteady, but stable after rested in one standing position before walking. Discussed transportation options home, not appropriate for taxi. Agreeable to private pay for chair van ride home aprox $40 + $3 per mile. Call to [facility] at [phone] and spoke with dispatcher. He reports no chairvan on weekend will substitute ambulance at chair van rate. Patient agreeable with plan.
--- NOTE | 2021-06-01 13:17 | CONS_ITS ---
DATE OF SERVICE: 05/30/2021 REASON FOR CONSULTATION: Consult requested by the medical team to evaluate and help in management of patient with end-stage renal disease, who presented with hyperkalemia after she missed dialysis treatment. She had generalized weakness. She has history of GERD and factor V Leiden deficiency on Coumadin. Usually follows up with Dr. [facility] at [facility]. She apparently overslept and missed her dialysis yesterday. She felt unsteady when she tried to go to the bathroom. There was no chest pain, palpitation, urinary symptoms. There is no dysuria, urgency of urination, frequent urination, chest pain or palpitation. The patient was evaluated in the ER and the patient was hyperkalemic with a potassium of 6.4 with EKG changes. She was given calcium gluconate, insulin, dextrose, Lokelma and EKG changes improved to the potassium dropping less than 6. Chest x-ray showed evidence of mild CHF. I discussed with the ER attending and decided to admit the patient with an extra dose of Lokelma 10 g. REVIEW OF SYSTEMS: As noted above. Other system review negative. PAST MEDICAL HISTORY: History of ESRD on hemodialysis on Tuesday, Tuesday, Tuesday, history of hypercholesterolemia, factor V Leiden mutation which is heterozygous. FAMILY HISTORY: Significant for hypertension. PERSONAL AND SOCIAL HISTORY: The patient does not smoke, drink, or use alcohol. ALLERGIES: INCLUDE ALLERGIES TO PENICILLIN AND PLAVIX. MEDICATIONS: At home include Tylenol, melatonin, senna, ciprofloxacin, Colace, doxepin, vitamin D, nasal sprays; furosemide 80 mg on Tuesday, Tuesday, , and Saturdays; lidocaine patch, metoprolol, oxycodone, Protonix, pravastatin, prednisone, Renvela, topiramate, and warfarin. PHYSICAL EXAMINATION: GENERAL: The patient is resting in the bed. Awake, alert, oriented x3. VITAL SIGNS: Blood pressure was 132/64, pulse 60, afebrile. HEENT: Shows pupils are equal bilaterally and reactive to light. No jugular venous distention is noted. NECK: Supple. No thyromegaly is noted. Mucosa moist. There is no scleral icterus or conjunctival congestion. CARDIOVASCULAR SYSTEM: S1, S2 without rub. RESPIRATORY SYSTEM: Air entry decreased in bases. No crepitation or rhonchi is noted. ABDOMEN: Soft, obese. Bowel sounds normal. EXTREMITIES: Showed trace edema. There is no peripheral cyanosis or clubbing. NEURO EXAM: Essentially nonfocal. LABS: Done today. WBC 5.6, hemoglobin 9.6, hematocrit 30, platelets were 61. Sodium 136, potassium 5.3, chloride 96, CO2 26, BUN 50, creatinine 7.04, estimated GFR was 6, calcium 8.1, troponin 25.6. COVID was negative. INR 2.2. IMPRESSION: 1. A 71-year-old female with end-stage renal disease, on hemodialysis with missed dialysis treatment. 2. Hyperkalemia in the setting of missed dialysis treatment. 3. Mild congestive heart failure. 4. Hypertension. 5. Anemia of chronic disease. 6. History of factor V Leiden deficiency. RECOMMENDATIONS: The patient was medically treated for hyperkalemia. Her potassium level is improved. As she missed dialysis treatment, I have arranged for hemodialysis at the inpatient dialysis unit. We will try to remove fluid as tolerated and use a low-potassium bath. In the meantime, we need to continue with the present medication regimen including Coumadin. We should also continue the present dose of phosphate binder, Renagel. The patient's hemoglobin level is acceptable and there is no immediate need for erythropoietin injections. Post dialysis, the patient is stable. She can be discharged home from renal standpoint. Thank you for allowing me to participate in medical management of the patient. MD BISI Bernabe/CITLALY / [id number]
== END 2021-05-30 17:54 | disposition home or self-care (01) | DRG 683 ==
LOC: HO.ED 14:43 → HO.EDOVER 20:11 → HO.IMC 05-30 13:45
PROVIDERS: Nurse Practitioner Family; Admitting Provider Hospitalist; Emergency Provider Emergency Medicine; Visit Provider Internal Medicine
DX: N18.6 End stage renal disease (principal); D68.51 Activated protein C resistance; Z20.822 Contact with and (suspected) exposure to COVID-19; K21.9 Gastro-esophageal reflux disease without esophagitis; E87.5 Hyperkalemia; Z99.2 Dependence on renal dialysis; I50.9 Heart failure, unspecified; Z91.15 Patient's noncompliance with renal dialysis; Z79.51 Long term (current) use of inhaled steroids; Z79.52 Long term (current) use of systemic steroids; Z79.01 Long term (current) use of anticoagulants; Z79.899 Other long term (current) drug therapy
CPT/HCPCS: 36415; 71046; 80048; 84132; 84484; 85025; 85610; 87635; 90999; 93005; 94640; 99284; J0610; J1170